=== PATIENT | male | born 1980 | race Caucasian/White ===

== ENCOUNTER 2018-10-21 14:39 | Inpatient (IN) | payer BC, OTHER ==
[2018-10-21 17:17] VITALS: BMI 35.6
--- NOTE | 2018-10-21 18:21 | HP ---
CIWA Score Nausea/Vomitin-Mild Nausea/No Vomiting Muscle Tremors: 2 Anxiety: 3 Agitation: 0-Normal Activity Paroxysmal Sweats: No Perspiration Orientation: 0-Oriented Tacttile Disturbances: 3-Moderate Itch/Numb/Burn Auditory Disturbances: 0-None Visual Disturbances: 0-None Headache: 3-Moderate CIWA-Ar Total Score: 12 - Admission Criteria [facility]ASAS Guidelines: Admission for Medically Managed Detox: Requires at least one of the followin. CIWA greater than 12 2. Seizures within the past 24 hours 3. Delirium tremens within the past 24 hours 4. Hallucinations within the past 24 hours 5. Acute intervention needed for co occurring medical disorder 6. Acute intervention needed for co occurring psychiatric disorder 7. Severe withdrawal that cannot be handled at a lower level of care (continued vomiting, continued diarrhea, abnormal vital signs) requiring intravenous medication and/or fluids 8. Admission ROS [facility] Chief Complaint: ETOH WITHDRAWAL SX. Allergies/Adverse Reactions: Allergies Allergy/AdvReac Type Severity Reaction Status Date / Time erythromycin base Allergy Severe Rash Verified 10/21/18 17:55 shellfish derived Allergy Severe Difficulty Verified 10/21/18 17:55 Breathing History of Present Illness: THIS IS PATIENT'S FIRST TIME ADMISSION TO [facility] AND DETOX. PATIENT STARTED DRINKING AT AGE 14 AND DRINKS 1/2 LITRE OF LIQUOR DAILY. LAST DRINK WAS TODAY. 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 + H/O BLACKOUTS AND BINGE DRINKING. PMH INCLUDES HTN AND DEPRESSION. DENIES SI/HI AND SUICIDE ATTEMPTS. TREATED WITH ZOLOFT FOR DEPRESSION BY PCP. PATIENT PRESENTED MEDICATION AND REFUSED PSYCH REFERRAL. DENIES SI/HI AND SUICIDE ATTEMPTS. Exam Limitations: No Limitations - Ebola screening Have you traveled outside of the country in the last 21 days: No Have you had contact with anyone from an Ebola affected area: No Have you been sick,other than usual withdrawal symptoms: No Do you have a fever: No - Review of Systems Constitutional: Night Sweats, Changes in sleep EENT: reports: No Symptoms Reported Respiratory: reports: Cough (SMOKING RELATED) Cardiac: reports: No Symptoms Reported GI: reports: Diarrhea, Nausea, Poor Fluid Intake, Abdominal cramping : reports: No Symptoms Reported Musculoskeletal: reports: No Symptoms Reported Integumentary: reports: Erythema, Flushing Neuro: reports: Headache, Numbness, Tingling, Tremors Endocrine: reports: No Symptoms Reported Hematology: reports: No Symptoms Reported Psychiatric: reports: Orientated x3, Anxious, Depressed Patient History - Patient Medical History Hx Anemia: No Hx Asthma: No Hx Chronic Obstructive Pulmonary Disease (COPD): No Hx Cancer: No Hx Cardiac Disorders: No Hx Congestive Heart Failure: No Hx Hypertension: Yes (on meds.) Hx Hypercholesterolemia: No Hx Pacemaker: No HX Cerebrovascular Accident: No Hx Seizures: No Hx Dementia: No Hx Diabetes: No Hx Gastrointestinal Disorders: No Hx Liver Disease: No Hx Genitourinary Disorders: No Hx Sexually Transmitted Disorders: No Hx Renal Disease (ESRD): No Hx Thyroid Disease: No Hx Human Immunodeficiency Virus (HIV): No Hx Hepatitis C: No Hx Depression: Yes Hx Suicide Attempt: No Hx Bipolar Disorder: No Hx Schizophrenia: No - Patient Surgical History Past Surgical History: Yes Hx Orthopedic Surgery: Yes (R shoulder sx. 2015 bilateral hip sx) Other Surgical History: tonsillectomy/adeniodectomy Anesthesia Reaction: No - PPD History Previous Implant?: Yes Documented Results: Negative w/o proof Implanted On Prior R Admission?: No PPD to be Administered?: Yes - Smoking Cessation Smoking history: Current every day smoker Have you smoked in the past 12 months: Yes Aproximately how many cigarettes per day: 20 Hx Chewing Tobacco Use: No Initiated information on smoking cessation: Yes 'Breaking Loose' booklet given: 10/21/18 - Substance & Tx. History Hx Alcohol Use: Yes Hx Substance Use: No Substance Use Type: Alcohol Hx Substance Use Treatment: No - Substances Abused Alcohol Route: Oral Frequency: Daily Amount used: 1/2 liter vodka Age of first use: 14 Date of Last Use: 10/21/18 Family Disease History - Family Disease History Family Disease History: Diabetes: Mother Admission Physical Exam BHS - Vital Signs Vital Signs: Vital Signs - 24 hr 10/21/18 17:15 Temperature 97.7 F Pulse Rate 108 H Respiratory 18 Rate Blood Pressure 148/96 - Physical General Appearance: Yes: Nourished, Appropriately Dressed, Obese, Tremorous HEENTM: Yes: EOMI, Hearing grossly Normal, Normal ENT Inspection, Normocephalic , Normal Voice, SHIREEN, Pharynx Normal, Tm's normal Respiratory: Yes: Chest Non-Tender, Lungs Clear, Normal Breath Sounds, No Respiratory Distress, No Accessory Muscle Use Neck: Yes: No masses,lesions,Nodules, Supple, Trachea in good position Breast: Yes: Breast Exam Deferred Cardiology: Yes: Regular Rhythm, Regular Rate, Edema Abdominal: Yes: Normal Bowel Sounds, Non Tender, Soft Genitourinary: Yes: Within Normal Limits Back: Yes: Normal Inspection Musculoskeletal: Yes: full range of Motion, Gait Steady Extremities: Yes: Normal Range of Motion, Non-Tender, Tremors, Swelling 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, Fully Oriented, Alert, Motor Strength 5/5, Normal Response, Depressed Affect Integumentary: Yes: Warm, Erythema, Moist Lymphatic: Yes: Within Normal Limits - Diagnostic (1) Alcohol dependence with uncomplicated withdrawal Current Visit: Yes Status: Acute (2) HTN (hypertension) Current Visit: Yes Status: Chronic Qualifiers: Hypertension type: essential hypertension Qualified Code(s): I10 - Essential (primary) hypertension (3) Depression Current Visit: Yes Status: Chronic Qualifiers: Active/Remission status: currently active Major depression episode severity : unspecified Cleared for Admission [facility] - Detox or Rehab [facility] Level of Care: Medically Managed Detox Regimen/Protocol: Librium [facility] Breath Alcohol Content Breath Alcohol Content: 0.098 Urine Drug Screen - Results Drug Screen Negative: Yes Inpatient Rehab Admission - Rehab Decision to Admit Inpatient rehab admission?: No
[2018-10-21] MEDS ORDERED: DICYCLOMINE HCL 10 MG CAPSULE PO PRN (18:32)
[2018-10-21] MEDS ORDERED: MAG HYDROX/AL HYDROX/SIMETH 30 ML UNIT-DOSE CUP PO PRN (18:32)
[2018-10-21] MEDS ORDERED: hydrOXYzine PAMOATE 25 MG CAPSULE (FP) PO PRN (18:32)
[2018-10-21] MEDS ORDERED: MAGNESIUM HYDROX 2400MG/30ML ORAL SUSPENSION 30 ML CUP PO PRN (18:32)
[2018-10-21] MEDS ORDERED: MENTHOL/PHENOL 1 EACH UD MM PRN (18:32)
[2018-10-21] MEDS ORDERED: MAGNESIUM CITRATE 300 ML BOTTLE PO PRN (18:32)
[2018-10-21] MEDS ORDERED: BISMUTH SUBSALICYLATE 524 MG/30 ML UD PO PRN (18:32)
[2018-10-21] MEDS ORDERED: IBUPROFEN 400 MG TABLET (FP) PO PRN (18:32)
[2018-10-21] MEDS ORDERED: ACETAMINOPHEN 325 MG TABLET (FP) PO PRN (18:32)
[2018-10-21] MEDS ORDERED: chlordiazePOXIDE HCL 25 MG CAPSULE PO PRN (18:34)
[2018-10-21] MEDS: chlordiazePOXIDE HCL 25 MG CAPSULE PO SCH ×3 (20:56→22:10)
[2018-10-21] MEDS: MELATONIN 5 MG TABLETS PO PRN (22:10)
[2018-10-21] MEDS: THIAMINE HCL 100 MG TABLET (FP) PO SCH (22:10)
[2018-10-22] MEDS ORDERED: chlordiazePOXIDE HCL 25 MG CAPSULE PO SCH (05:00)
[2018-10-22] MEDS: chlordiazePOXIDE HCL 25 MG CAPSULE PO SCH ×4 (05:23→22:10)
[2018-10-22] MEDS: NICOTINE POLACRILEX 2 MG GUM BUC PRN (05:27)
[2018-10-22] MEDS ORDERED: cloNIDine HCL 0.1 MG TABLET PO ONE (06:52)
[2018-10-22] MEDS ORDERED: PATIENT'S OWN MEDICATION (NON-FORMULARY) (Lisinopril/Hydrochlorothiazide [Lisinopril-Hctz PO SCH (10:00)
[2018-10-22] MEDS: SERTRALINE HCL 50 MG TABLET (FP) PO SCH (10:28)
[2018-10-22] MEDS: PRENATAL VITAMINS W/ FOLIC ACID TABLET (FP) PO SCH (10:28)
[2018-10-22] MEDS: LISINOPRIL 20 MG TABLET (FP) PO SCH (10:29)
[2018-10-22] MEDS: FUROSEMIDE 20 MG TABLET (FP) PO SCH (10:29)
[2018-10-22] MEDS: HYDROCHLOROTHIAZIDE 25 MG TABLET (FP) PO SCH (10:29)
[2018-10-22] MEDS: NIFEdipine E.R. 30 MG TABLET (FP) PO SCH (10:29)
[2018-10-22] MEDS: NICOTINE 21 MG/24 HOURS TOPICAL PATCH TD SCH (10:29)
--- NOTE | 2018-10-22 11:23 | PN ---
S CIWA - CIWA Score Nausea/Vomitin-No Nausea/No Vomiting Muscle Tremors: 3 Anxiety: 3 Agitation: 3 Paroxysmal Sweats: 3 Orientation: 0-Oriented Tacttile Disturbances: 0-None Auditory Disturbances: 0-None Visual Disturbances: 0-None Headache: 0-None Present CIWA-Ar Total Score: 12 BHS Progress Note (SOAP) Subjective: sweats shakes interrupted sleep body aches anxiety Objective: 10/22/18 11:22 Vital Signs Temperature 97.9 F 10/22/18 09:46 Pulse Rate 101 H 10/22/18 09:46 Respiratory Rate 18 10/22/18 09:46 Blood Pressure 158/98 10/22/18 09:46 O2 Sat by Pulse Oximetry (%) labs pending [id number] ambulating no acute distress Assessment: 10/22/18 11:22 withdrawal sx Plan: continue detox increase fluids labs pending
[2018-10-22 11:28] LABS: HEMATOCRIT 52.1 % (35.4-49); HEMOGLOBIN 17.5 GM/dL (11.7-16.9); MCH 34.1 pg (25.7-33.7); MCHC 33.5 g/dl (32.0-35.9); MEAN CELL VOLUME 101.6 fl (80-96); MEAN PLT VOLUME 9.5 fl (7.5-11.1); PLATELET COUNT 128 K/MM3 (134-434); RBC 5.13 M/mm3 (4.00-5.60); RDW 13.8 % (11.9-15.9); WHITE BLOOD COUNT 6.9 K/mm3 (4.0-10.0)
[2018-10-22 11:43] LABS: URINE APPEARANCE CLEAR; URINE BILIRUBIN NEGATIVE (<2.0 mg/dL); URINE COLOR AMBER; URINE GLUCOSE (UA) NEGATIVE (NEGATIVE); URINE KETONE NEGATIVE (NEGATIVE); URINE LEUK ESTERASE NEGATIVE (NEGATIVE); URINE NITRITE NEGATIVE (NEGATIVE); URINE PROTEIN 3+ (NEGATIVE)
[2018-10-22 11:47] LABS: URINE MUCUS FEW
--- NOTE | 2018-10-22 12:03 | EKG ---
Test Reason : Blood Pressure : / mmHG Vent. Rate : 102 BPM Atrial Rate : 102 BPM P-R Int : 146 ms QRS Dur : 084 ms QT Int : 354 ms P-R-T Axes : -07 -26 003 degrees QTc Int : 461 ms SINUS TACHYCARDIA OTHERWISE NORMAL ECG NO PREVIOUS ECGS AVAILABLE Confirmed by BELIA GONZALES, ZAHIDA ([id number]) on 10/22/2018 12:02:54 PM Referred By: Confirmed By:ZAHIDA CELAYA MD
[2018-10-22 12:09] LABS: ALBUMIN 3.7 g/dl (3.4-5.0); ALK PHOS 114 U/L (45-117); ANION GAP 10 MMOL/L (8-16); BILIRUBIN,TOTAL 0.8 mg/dL (0.2-1); BLOOD UREA NITROGEN 16 mg/dL (7-18); CALCIUM 8.7 mg/dL (8.5-10.1); CHLORIDE 99 mmol/L (98-107); CO2 27 mmol/L (21-32); CREATININE 0.9 mg/dL (0.55-1.3); GLUCOSE,RANDOM 122 mg/dL (74-106); POTASSIUM 3.7 mmol/L (3.5-5.1); SGOT/AST 92 U/L (15-37); SGPT/ALT 176 U/L (13-61); SODIUM 136 mmol/L (136-145); TOT PROT 6.9 g/dl (6.4-8.2)
[2018-10-22] MEDS: MELATONIN 5 MG TABLETS PO PRN (22:11)
[2018-10-22] MEDS: THIAMINE HCL 100 MG TABLET (FP) PO SCH (22:11)
[2018-10-23] MEDS ORDERED: chlordiazePOXIDE HCL 10 MG CAPSULE PO SCH (05:00)
[2018-10-23] MEDS ORDERED: chlordiazePOXIDE HCL 10 MG CAPSULE PO PRN (05:00)
[2018-10-23] MEDS: chlordiazePOXIDE HCL 25 MG CAPSULE PO SCH ×2 (05:48→10:44)
[2018-10-23] MEDS: SERTRALINE HCL 50 MG TABLET (FP) PO SCH (10:43)
[2018-10-23] MEDS: HYDROCHLOROTHIAZIDE 25 MG TABLET (FP) PO SCH (10:43)
[2018-10-23] MEDS: PRENATAL VITAMINS W/ FOLIC ACID TABLET (FP) PO SCH (10:43)
[2018-10-23] MEDS: NIFEdipine E.R. 30 MG TABLET (FP) PO SCH (10:43)
[2018-10-23] MEDS: FUROSEMIDE 20 MG TABLET (FP) PO SCH (10:43)
[2018-10-23] MEDS: NICOTINE 21 MG/24 HOURS TOPICAL PATCH TD SCH (10:44)
[2018-10-23] MEDS: LISINOPRIL 20 MG TABLET (FP) PO SCH (10:44)
[2018-10-23] MEDS ORDERED: cloNIDine HCL 0.1 MG TABLET PO ONE (14:36)
--- NOTE | 2018-10-23 14:43 | PN ---
S CIWA - CIWA Score Nausea/Vomitin-No Nausea/No Vomiting Muscle Tremors: None Anxiety: 3 Agitation: 1-Slight > Activity Paroxysmal Sweats: No Perspiration Orientation: 0-Oriented Tacttile Disturbances: 0-None Auditory Disturbances: 0-None Visual Disturbances: 1-Very Mild Sensitivity Headache: 3-Moderate CIWA-Ar Total Score: 8 BHS Progress Note (SOAP) Subjective: Headache. Patient reports that withdrawal symptoms in general are subsiding in severity. Objective: PATIENT A & O X 3, OBSERVED AMBULATING ON UNIT. IN NO ACUTE DISTRESS. 10/23/18 14:38 Vital Signs Temperature 98.6 F 10/23/18 14:05 Pulse Rate 97 H 10/23/18 14:05 Respiratory Rate 20 10/23/18 14:05 Blood Pressure 153/94 10/23/18 14:05 O2 Sat by Pulse Oximetry (%) Laboratory Tests 10/22/18 10/22/18 10/22/18 07:30 07:30 07:30 WBC 6.9 RBC 5.13 Hgb 17.5 H Hct 52.1 H MCV 101.6 H MCH 34.1 H MCHC 33.5 RDW 13.8 Plt Count 128 L MPV 9.5 Sodium 136 Potassium 3.7 Chloride 99 Carbon Dioxide 27 Anion Gap 10 BUN 16 Creatinine 0.9 Creat Clearance w eGFR 94.44 Random Glucose 122 H Calcium 8.7 Total Bilirubin 0.8 AST 92 H ALT 176 H Alkaline Phosphatase 114 Total Protein 6.9 Albumin 3.7 Urine Color Urine Appearance Urine pH Ur Specific [place] Urine Protein Urine Glucose (UA) Urine Ketones Urine Blood Urine Nitrite Urine Bilirubin Urine Urobilinogen Ur Leukocyte Esterase Urine WBC (Auto) Urine RBC (Auto) Urine Mucus RPR Titer Nonreactive 10/22/18 08:00 WBC RBC Hgb Hct MCV MCH MCHC RDW Plt Count MPV Sodium Potassium Chloride Carbon Dioxide Anion Gap BUN Creatinine Creat Clearance w eGFR Random Glucose Calcium Total Bilirubin AST ALT Alkaline Phosphatase Total Protein Albumin Urine Color Stefania Urine Appearance Clear Urine pH 6.0 Ur Specific [place] 1.025 Urine Protein 3+ H Urine Glucose (UA) Negative Urine Ketones Negative Urine Blood Negative Urine Nitrite Negative Urine Bilirubin Negative Urine Urobilinogen 2.0 Ur Leukocyte Esterase Negative Urine WBC (Auto) 2 Urine RBC (Auto) 1 Urine Mucus Few RPR Titer LABS NOTED. Assessment: 10/23/18 14:39 WITHDRAWAL SYMPTOMS. ELEVATED LIVER ENZYMES. THROMBOCYTOPENIA. PROTEINURIA. 10/23/18 14:43 Plan: CONTINUE DETOX. ADMISSION LAB RESULTS REVIEWED WITH PATIENT. PATIENT ADVISED TO FOLLOW-UP WITH [facility] ([place], [place]) AFTER DISCHARGE FROM DETOX UNIT LOW PLATELET LEVEL, ELEVATED LIVER ENZYMES AND FOR PROTEINURIA NOTED ON ADMISSION LABORATORY ASSESSMENT. PATIENT VERBALIZED UNDERSTANDING OF RECOMMENDATION. COPIES OF RESULTS OF ALL LAB RESULTS DRAWN WHILE ADMITTED FOR DETOX GIVEN TO PATIENT AT TIME OF DISCHARGE FROM DETOX UNIT. CLONIDINE, 0.1 MG PO X1 ORDERED FOR ELEVATED AFTERNOON BP DESPITE TREATMENT. PATIENT REPORTS THAT HE IS TOLERATING CURRENT WITHDRAWAL / DETOX SYMPTOMS WELL. AT PATIENT'S REQUEST, CURRENT DETOX MEDICATION REGIMEN MODIFIED SO THAT HE MAY BE DISCHARGED TOMORROW, 10/24/2018, TO ATTEND TO PERSONAL AFFAIRS.
[2018-10-23] MEDS: chlordiazePOXIDE HCL 10 MG CAPSULE PO SCH ×2 (17:30→22:09)
[2018-10-23] MEDS ORDERED: LISINOPRIL 20 MG TABLET (FP) PO ONE (17:51)
--- NOTE | 2018-10-23 17:54 | PN ---
S Progress Note Note: Vital Signs Temperature 98.0 F 10/23/18 17:06 Pulse Rate 104 H 10/23/18 17:06 Respiratory Rate 18 10/23/18 17:06 Blood Pressure 160/115 H 10/23/18 17:06 O2 Sat by Pulse Oximetry (%) Patient with asymptomatic elevated BP. Additional dose of lisinopril 20 mg ordered increase PO fluids continue to monitor
[2018-10-23] MEDS: THIAMINE HCL 100 MG TABLET (FP) PO SCH (22:09)
[2018-10-23] MEDS: MELATONIN 5 MG TABLETS PO PRN (22:09)
[2018-10-23] MEDS: NICOTINE POLACRILEX 2 MG GUM BUC PRN (22:11)
[2018-10-24] MEDS ORDERED: chlordiazePOXIDE HCL 10 MG CAPSULE PO SCH (05:00)
[2018-10-24] MEDS: chlordiazePOXIDE HCL 10 MG CAPSULE PO SCH (05:04)
[2018-10-24 09:14] VITALS: BP 151/102; PULSE 89; TEMP 97.7
--- NOTE | 2018-10-24 09:18 | PN ---
S Progress Note (SOAP) Subjective: alert,no complaint Objective: 10/24/18 09:16 Vital Signs Temperature 97.7 F 10/24/18 09:13 Pulse Rate 89 10/24/18 09:13 Respiratory Rate 20 10/24/18 09:13 Blood Pressure 151/102 H 10/24/18 09:13 O2 Sat by Pulse Oximetry (%) Assessment: 10/24/18 09:17 detox completed,no withdrawal symptom Plan: discharge today,follow up with after care program as arrangement
--- NOTE | 2018-10-24 09:23 | DS ---
[facility] Detox Discharge Summary Admission Date: 10/21/18 Discharge Date: 10/24/18 - History Present History: Alcohol Dependence Additional Comments: follow up with after [facility] program as arrangement and family doctor for hypertension Pertinent Past History: hypertension depression - Physical Exam Results Vital Signs: Vital Signs Temperature 97.7 F 10/24/18 09:13 Pulse Rate 89 10/24/18 09:13 Respiratory Rate 20 10/24/18 09:13 Blood Pressure 151/102 H 10/24/18 09:13 O2 Sat by Pulse Oximetry (%) Pertinent Admission Physical Exam Findings: withdrawal symptom Vital Signs Temperature 97.7 F 10/24/18 09:13 Pulse Rate 89 10/24/18 09:13 Respiratory Rate 20 10/24/18 09:13 Blood Pressure 151/102 H 10/24/18 09:13 O2 Sat by Pulse Oximetry (%) Laboratory Last Values WBC 6.9 K/mm3 (4.0-10.0) 10/22/18 07:30 RBC 5.13 M/mm3 (4.00-5.60) 10/22/18 07:30 Hgb 17.5 GM/dL (11.7-16.9) H 10/22/18 07:30 Hct 52.1 % (35.4-49) H 10/22/18 07:30 MCV 101.6 fl (80-96) H 10/22/18 07:30 MCH 34.1 pg (25.7-33.7) H 10/22/18 07:30 MCHC 33.5 g/dl (32.0-35.9) 10/22/18 07:30 RDW 13.8 % (11.9-15.9) 10/22/18 07:30 Plt Count 128 K/MM3 (134-434) L 10/22/18 07:30 MPV 9.5 fl (7.5-11.1) 10/22/18 07:30 Sodium 136 mmol/L (136-145) 10/22/18 07:30 Potassium 3.7 mmol/L (3.5-5.1) 10/22/18 07:30 Chloride 99 mmol/L (98-107) 10/22/18 07:30 Carbon Dioxide 27 mmol/L (21-32) 10/22/18 07:30 Anion Gap 10 MMOL/L (8-16) 10/22/18 07:30 BUN 16 mg/dL (7-18) 10/22/18 07:30 Creatinine 0.9 mg/dL (0.55-1.3) 10/22/18 07:30 Creat Clearance w eGFR 94.44 (>60) 10/22/18 07:30 Random Glucose 122 mg/dL (74-106) H 10/22/18 07:30 Calcium 8.7 mg/dL (8.5-10.1) 10/22/18 07:30 Total Bilirubin 0.8 mg/dL (0.2-1) 10/22/18 07:30 AST 92 U/L (15-37) H 10/22/18 07:30 ALT 176 U/L (13-61) H 10/22/18 07:30 Alkaline Phosphatase 114 U/L (45-117) 10/22/18 07:30 Total Protein 6.9 g/dl (6.4-8.2) 10/22/18 07:30 Albumin 3.7 g/dl (3.4-5.0) 10/22/18 07:30 Urine Color Stefania 10/22/18 08:00 Urine Appearance Clear 10/22/18 08:00 Urine pH 6.0 (5.0-8.0) 10/22/18 08:00 Ur Specific [place] 1.025 (1.010-1.035) 10/22/18 08:00 Urine Protein 3+ (NEGATIVE) H 10/22/18 08:00 Urine Glucose (UA) Negative (NEGATIVE) 10/22/18 08:00 Urine Ketones Negative (NEGATIVE) 10/22/18 08:00 Urine Blood Negative (NEGATIVE) 10/22/18 08:00 Urine Nitrite Negative (NEGATIVE) 10/22/18 08:00 Urine Bilirubin Negative (<2.0 mg/dL) 10/22/18 08:00 Urine Urobilinogen 2.0 mg/dL (0.2-1.0) 10/22/18 08:00 Ur Leukocyte Esterase Negative (NEGATIVE) 10/22/18 08:00 Urine WBC (Auto) 2 /hpf (3-5) 10/22/18 08:00 Urine RBC (Auto) 1 /hpf (0-3) 10/22/18 08:00 Urine Mucus Few 10/22/18 08:00 RPR Titer Nonreactive (NONREACTIVE) 10/22/18 07:30 - Treatment Hospital Course: Detox Protocol Followed, Detoxed Safely, Responded well, Discharged Condition Good Patient has Accepted a Rehab Referral to: declined - Medication Discharge Medications: Ambulatory Orders Furosemide [Lasix -] 20 mg PO DAILY 10/21/18 Lisinopril/Hydrochlorothiazide [Lisinopril-Hctz 20-25 mg Tab] 1 each PO DAILY Nifedipine ER [Procardia Xl -] 30 mg PO DAILY 10/21/18 Sertraline HCl [Zoloft] 100 mg PO DAILY 10/21/18 - Diagnosis (1) Alcohol dependence with uncomplicated withdrawal Current Visit: Yes Status: Acute (2) Depression Current Visit: Yes Status: Chronic Qualifiers: Active/Remission status: currently active Major depression episode severity : unspecified (3) HTN (hypertension) Current Visit: Yes Status: Chronic Qualifiers: Hypertension type: essential hypertension Qualified Code(s): I10 - Essential (primary) hypertension - AMA Did Patient Leave Against Medical Advice: No
[2018-10-24] MEDS: SERTRALINE HCL 50 MG TABLET (FP) PO SCH (09:44)
[2018-10-24] MEDS: NIFEdipine E.R. 30 MG TABLET (FP) PO SCH (09:45)
[2018-10-24] MEDS: LISINOPRIL 20 MG TABLET (FP) PO SCH (09:45)
[2018-10-24] MEDS: FUROSEMIDE 20 MG TABLET (FP) PO SCH (09:45)
[2018-10-24] MEDS: HYDROCHLOROTHIAZIDE 25 MG TABLET (FP) PO SCH (09:45)
[2018-10-24] MEDS: PRENATAL VITAMINS W/ FOLIC ACID TABLET (FP) PO SCH (09:45)
== END 2018-10-24 09:49 | disposition home or self-care (01) | DRG 775 ==
LOC: YASAS 14:39 → Y6N 19:20
PROVIDERS: ADMIT Surgery; ATTEND Surgery
PROC: HZ2ZZZZ Detoxification Services for Substance Abuse Treatment (ICD-10-PCS; principal; 2018-10-21)
DX: F10.230 Alcohol dependence with withdrawal, uncomplicated (principal); F32.9 Major depressive disorder, single episode, unspecified; I10 Essential (primary) hypertension; Z88.8 Allergy status to other drugs, medicaments and biological substances; Z91.013 Allergy to seafood
CPT/HCPCS: 36415; 80053; 81003; 81015; 85027; 86593; 93005; 93010; J0735